=== PATIENT | female | born 1980 | race Caucasian/White ===

== ENCOUNTER 2017-04-07 17:36 | Emergency (ER) | payer BC, OTHER ==
[2017-04-07 18:00] VITALS: BP 121/91
[2017-04-07] MEDS ORDERED: Sodium Chloride 0.9% 10 ML Syringe FLUSH PRN (18:50)
[2017-04-07] MEDS ORDERED: Sodium Chloride 0.9% 1,000 ML IV ONE (19:34)
--- NOTE | 2017-04-07 19:37 | EDM.PDOC ---
ED HPI GENERAL MEDICAL PROBLEM - General Chief Complaint: Abdominal Pain Stated Complaint: ABD PAIN Time Seen by Provider: 04/07/17 18:20 Source of Information: Reports: Patient History Limitations: Reports: No Limitations - History of Present Illness INITIAL COMMENTS - FREE TEXT/NARRATIVE: patient is a 36-year-old female who presents to the ED complaining of generalized abdominal pain and burning sensation with urination. Patient states symptoms have been going on for almost 4 months. States she was recently evaluated and had labs, ultrasound of the gallbladder, transvaginal ultrasound, and CT the abdomen/pelvis obtained with no abnormalities. Patient states she does have a history of small kidney stones and on multiple occasions been diagnosed with this. States pain comes on abruptly after having arguments with her significant other, under stress, and other nonpredictable times. Pain is mostly to the right lower quadrant and periumbilical area. She's had no abnormal vaginal discharge present. She denies any acid reflux.She is mildly nauseated with no emesis. They checked for H. pylori which was negative. She's never had a colonoscopy or EGD. She was started on Bactrim with concerns of maybe having a UTI. UA results indicated differently. In addition she was started on Diflucan with concerns of having a yeast infection. Patient states she's never had a yeast-like symptoms.she is currently monogamous relationship with no concerns for STD. Past medical history includes: Depression, hypertension Current medications include lisinopril and Zoloft Right Middle Abdominal Pain Score (Numeric/FACES): 3 - Related Data Allergies Allergy/AdvReac Type Severity Reaction Status Date / Time No Known Allergies Allergy Verified 04/07/17 17:55 Home Meds: Home Meds Lisinopril/Hydrochlorothiazide [Lisinopril-Hctz 20-25 mg Tab] 1 tab PO DAILY 03/17 [History] Sertraline HCl [Zoloft] 50 mg PO DAILY 04/07/17 [History] Past Medical History Cardiovascular History: Reports: Hypertension Genitourinary History: Reports: Renal Calculus Psychiatric History: Reports: Depression Social & Family History - Tobacco Use Smoking Status *Q: Never Smoker - Recreational Drug Use Recreational Drug Use: No ED ROS GENERAL - Review of Systems Review Of Systems: See Below Constitutional: Reports: Malaise, Decreased Appetite. Denies: Fever, Chills HEENT: Reports: No Symptoms Respiratory: Reports: No Symptoms Cardiovascular: Reports: No Symptoms GI/Abdominal: Reports: Abdominal Pain, Constipation, Diarrhea, Decreased Appetite, Nausea, Vomiting. Denies: Black Stool, Bloody Stool, Hematemesis, Hematochezia : Reports: Dysuria, Frequency, Urgency. Denies: Discharge, Hematuria Musculoskeletal: Reports: No Symptoms Neurological: Reports: No Symptoms ED EXAM, GENERAL - Physical Exam Exam: See Below Exam Limited By: No Limitations General Appearance: Alert, WD/WN, Mild Distress Ears: Hearing Grossly Normal Nose: Normal Inspection Throat/Mouth: Normal Voice, No Airway Compromise Neck: Normal Inspection, Supple Respiratory/Chest: No Respiratory Distress, Lungs Clear, Normal Breath Sounds, No Accessory Muscle Use, Chest Non-Tender Cardiovascular: Normal Peripheral Pulses, Regular Rate, Rhythm, No Murmur Peripheral Pulses: 2+: Radial (L) GI/Abdominal: Normal Bowel Sounds, Soft, No Organomegaly, No Distention, Tender (generalized), Other (no Chambers sign, McBurney point) Back Exam: Normal Inspection. No: CVA Tenderness (L), CVA Tenderness (R) Extremities: Normal Inspection, Non-Tender, No Pedal Edema, Normal Capillary Refill Neurological: Alert, Oriented, CN II-XII Intact, Normal Cognition, No Motor/ Sensory Deficits Psychiatric: Normal Affect, Normal Mood Skin Exam: Warm, Dry, Intact, Normal Color Course - Vital Signs Last Recorded V/S: Last Vital Signs Temp 97.8 F 04/07/17 17:56 Pulse 77 04/07/17 22:22 Resp 16 04/07/17 22:22 BP 121/91 H 04/07/17 17:56 Pulse Ox 99 04/07/17 22:22 - Orders/Labs/Meds Orders: Active Orders 24 hr Category Date Time Status Enema [RC] ASDIRECTED Care 04/07/17 20:43 Active Peripheral IV Care [RC] . DIRECTED Care 04/07/17 18:51 Active Peripheral IV Insertion Adult [OM.PC] Stat Oth 04/07/17 18:51 Ordered Labs: Laboratory Tests 04/07/17 04/07/17 04/07/17 Range/Units 16:00 16:00 16:00 WBC 10.97 H (3.98-10.04) K/mm3 RBC 5.08 (3.98-5.22) M/mm3 Hgb 15.8 H (11.2-15.7) gm/L Hct 44.8 (34.1-44.9) % MCV 88.2 (79.4-94.8) fl MCH 31.1 (25.6-32.2) pg MCHC 35.3 (32.2-35.5) g/dl RDW Std Deviation 39.0 (36.4-46.3) fL Plt Count 291 (182-369) K/mm3 MPV 10.1 (9.4-12.3) fl Neut % (Auto) 49.0 (34.0-71.1) % Lymph % (Auto) 41.4 (19.3-51.7) % [place] % (Auto) 7.0 (4.7-12.5) % Eos % (Auto) 2.0 (0.7-5.8) Baso % (Auto) 0.5 (0.1-1.2) % Neut # (Auto) 5.38 (1.56-6.13) K/mm3 Lymph # (Auto) 4.54 H (1.18-3.74) K/mm3 [place] # (Auto) 0.77 H (0.24-0.36) K/mm3 Eos # (Auto) 0.22 (0.04-0.36) K/mm3 Baso # (Auto) 0.05 (0.01-0.08) K/mm3 Sodium 137 (136-145) mEq/L Potassium 4.0 (3.5-5.1) mEq/L Chloride 99 (98-107) mEq/L Carbon Dioxide 30 (21-32) mEq/L Anion Gap 12.0 (5-15) BUN 22 H (7-18) mg/dL Creatinine 1.2 H (0.55-1.02) mg/dL Est Cr Clr Drug Dosing 63.03 mL/min Estimated GFR (MDRD) 51 (>60) mL/min BUN/Creatinine Ratio 18.3 H (14-18) Glucose 86 (74-106) mg/dL Calcium 9.7 (8.5-10.1) mg/dL Total Bilirubin 0.4 (0.2-1.0) mg/dL AST 20 (15-37) U/L ALT 30 (14-59) U/L Alkaline Phosphatase 64 (46-116) U/L C-Reactive Protein < 0.2 (<1.0) mg/dL Total Protein 8.1 (6.4-8.2) g/dl Albumin 4.8 (3.4-5.0) g/dl Globulin 3.3 gm/dL Albumin/Globulin Ratio 1.5 (1-2) Lipase 102 (73-393) U/L TSH 3rd Generation 5.169 H (0.358-3.74) uIU/mL HCG, Qual Negative (NEGATIVE) Urine Color (Yellow) Urine Appearance (Clear) Urine pH (5.0-8.0) Ur Specific Biggs (1.005-1.030) Urine Protein (Negative) Urine Glucose (UA) (Negative) Urine Ketones (Negative) Urine Occult Blood (Negative) Urine Nitrite (Negative) Urine Bilirubin (Negative) Urine Urobilinogen (0.2-1.0) Ur Leukocyte Esterase (Negative) Urine RBC (0-5) /hpf Urine WBC (0-5) /hpf Ur Epithelial Cells (0-5) /hpf Urine Bacteria (FEW) /hpf Urine Mucus (FEW) /hpf 04/07/17 Range/Units 19:05 WBC (3.98-10.04) K/mm3 RBC (3.98-5.22) M/mm3 Hgb (11.2-15.7) gm/L Hct (34.1-44.9) % MCV (79.4-94.8) fl MCH (25.6-32.2) pg MCHC (32.2-35.5) g/dl RDW Std Deviation (36.4-46.3) fL Plt Count (182-369) K/mm3 MPV (9.4-12.3) fl Neut % (Auto) (34.0-71.1) % Lymph % (Auto) (19.3-51.7) % Bartow % (Auto) (4.7-12.5) % Eos % (Auto) (0.7-5.8) Baso % (Auto) (0.1-1.2) % Neut # (Auto) (1.56-6.13) K/mm3 Lymph # (Auto) (1.18-3.74) K/mm3 [place] # (Auto) (0.24-0.36) K/mm3 Eos # (Auto) (0.04-0.36) K/mm3 Baso # (Auto) (0.01-0.08) K/mm3 Sodium (136-145) mEq/L Potassium (3.5-5.1) mEq/L Chloride (98-107) mEq/L Carbon Dioxide (21-32) mEq/L Anion Gap (5-15) BUN (7-18) mg/dL Creatinine (0.55-1.02) mg/dL Est Cr Clr Drug Dosing mL/min Estimated GFR (MDRD) (>60) mL/min BUN/Creatinine Ratio (14-18) Glucose (74-106) mg/dL Calcium (8.5-10.1) mg/dL Total Bilirubin (0.2-1.0) mg/dL AST (15-37) U/L ALT (14-59) U/L Alkaline Phosphatase (46-116) U/L C-Reactive Protein (<1.0) mg/dL Total Protein (6.4-8.2) g/dl Albumin (3.4-5.0) g/dl Globulin gm/dL Albumin/Globulin Ratio (1-2) Lipase (73-393) U/L TSH 3rd Generation (0.358-3.74) uIU/mL HCG, Qual (NEGATIVE) Urine Color Light yellow (Yellow) Urine Appearance Clear (Clear) Urine pH 6.5 (5.0-8.0) Ur Specific Biggs 1.015 (1.005-1.030) Urine Protein Negative (Negative) Urine Glucose (UA) Negative (Negative) Urine Ketones Negative (Negative) Urine Occult Blood Negative (Negative) Urine Nitrite Negative (Negative) Urine Bilirubin Negative (Negative) Urine Urobilinogen 0.2 (0.2-1.0) Ur Leukocyte Esterase Negative (Negative) Urine RBC Not seen (0-5) /hpf Urine WBC 0-5 (0-5) /hpf Ur Epithelial Cells 0-5 (0-5) /hpf Urine Bacteria Not seen (FEW) /hpf Urine Mucus Not seen (FEW) /hpf Meds: Medications Discontinued Medications Generic Name Dose Route Start Last Admin Trade Name Freq PRN Reason Stop Dose Admin Sodium Chloride 1,000 mls @ 999 mls/hr 04/07/17 19:34 08/07/17 19:42 Normal Saline IV 04/07/17 20:34 999 mls/hr ONETIME ONE Administration Lorazepam 1 mg 04/07/17 20:43 04/07/17 20:57 Ativan IVPUSH 04/07/17 20:44 1 mg ONETIME ONE Administration Magnesium Citrate 296 ml 04/07/17 20:44 04/07/17 20:57 Citrate Of Magnesia PO 04/07/17 20:45 296 ml ONETIME ONE Administration Sodium Chloride 10 ml 04/07/17 18:50 04/07/17 19:42 Saline Flush FLUSH 10 ml ASDIRECTED PRN Administration Keep Vein Open - Re-Assessments/Exams Free Text/Narrative Re-Assessment/Exam: Obtain results of Limited ultrasound that was performed April 08 at 2016 impression: Negative Limited and abdomen ultrasound. In addition reviewed CT the abdomen and pelvis obtained the same day impression: Stable incidental benign-appearing findings of the abdomen and pelvis with no acute abdominal pathology appreciated liquid explained patient's current abdominal pain. Ordered peripheral IV with normal saline. Initial labs and studies include CBC , chem 14, CRP, lipase, TSH, UA, HCG, and two-view of the abdomen. Labs reviewed: White blood cell count 10.97, hemoglobin is 15.8, platelet count 291, sodium 37, potassium 4.0, creatinine 1.2, glucose 86, lipase 102, TSH was 5.169. Of note patient has a familial history of hypothyroidism. Patient notes a dry skin, losing her hair, fatigue, and constipation. UA was negative for any concerning findings. Abdominal x-ray reviewed: Copious amounts of stool within the ascending transverse and descending colon. No Acute findings noted. Reviewed with Dr. Sebastian. Final interpretation pending. 04/07/17 20:44 Offered oil retention enema to be performed here in the E.D. with Bottle of mag citrate ordered to go home with patient. Patient agreed to have oil retention enema. 04/07/17 22:02 Patient had minimal out with the oil retention enema. Patient will be discharged the patient home with instructions as documented. Departure - Departure Time of Disposition: 22:02 Disposition: Home, Self-Care 01 Condition: Good Clinical Impression: Elevated TSH Abdominal pain Qualifiers: Abdominal location: generalized Qualified Code(s): R10.84 - Generalized abdominal pain Constipation Qualifiers: Constipation type: unspecified constipation type Qualified Code(s): K59.00 - Constipation, unspecified Instructions: Abdominal Pain, Adult, [id number], Constipation, Adult, Easy-to -Read Referrals: June Travis [employer]ICER [Primary Care Provider] - Forms: ED Department Discharge Additional Instructions: As discussed x-ray of the abdomen revealed copious amounts of stool present. This is concerning since your TSH is mildly elevated. You have a family history of hypothyroidism and also complain of losing your hair, dry skin, and fatigue. All these symptoms along with constipation may be associated with hypothyroidism. I would discuss further with your PCP additional testing needed to determine if medication is required. IN addition abdominal pain maybe associated with irritable bowel syndrome. Again this is a diagnosis of exclusion. CT abdomen and pelvis obtained April 03, 2017 indicated no acute intra-abdominal pathology appreciated. In addition ultrasound limited obtained April 03, 2017 revealed negative findings. YOu mentioned non-OB ultrasound was negative as well. Labs did not indicate any additional abnormalities. UA was negative for infection. Since you did not receive adequate results with the enema. Will have you take mag citrate half bottle this evening and half of the bottle tomorrow morning. You should have good results with this. Take Colace 100 mg twice a day for 5 days. MiraLAX one capful with copious amounts of water. Increase exercise and fiber in your diet. MiraLAX should be continued for at least 6 months to see if this improves your symptoms. In addition if it is determined your thyroid is working appropriately by additional testing increase in your Zoloft may be required. Return to the ED for any new or worsening symptoms as discussed. - My Orders Last 24 Hours: My Active Orders 04/07/17 18:51 Peripheral IV Care [RC] . DIRECTED Peripheral IV Insertion Adult [OM.PC] Stat 04/07/17 20:43 Enema [RC] ASDIRECTED - Assessment/Plan Last 24 Hours: My Active Orders 04/07/17 18:51 Peripheral IV Care [RC] . DIRECTED Peripheral IV Insertion Adult [OM.PC] Stat 04/07/17 20:43 Enema [RC] ASDIRECTED
[2017-04-07] MEDS ORDERED: LORazepam 2 MG/ML MDV IVPUSH ONE (20:43)
[2017-04-07] MEDS ORDERED: Magnesium Citrate Solution 296 ML Bottle PO ONE (20:44)
--- NOTE | 2017-04-08 07:00 | CR ---
Abdomen: Upright and supine views of the abdomen were obtained. Comparison: No previous study. Slight increased stool is noted within the colon. Bowel gas pattern is otherwise unremarkable. No free air is seen. Bony structures are unremarkable. Calcification is identified within the lower right kidney compatible with nonobstructing stone. Probable nonobstructing stones are noted within the left upper kidney. Calcifications are seen within the pelvis compatible with phleboliths. Impression: 1. Nonobstructing renal calculi. 2. Slight increased stool within the colon. 3. No additional abnormality is identified. Diagnostic code #3
== END 2017-04-07 22:15 | disposition home or self-care (01) ==
LOC: JD.ED 17:36
DX: K59.00 Constipation, unspecified (principal); R94.6 Abnormal results of thyroid function studies; I10 Essential (primary) hypertension; Z87.442 Personal history of urinary calculi; Z79.899 Other long term (current) drug therapy
CPT/HCPCS: 36415; 74020; 80053; 81001; 83690; 84443; 84703; 85025; 86140; 96361; 96374; 99285; A9270; J2060; J7040; J7050; 99284